=== PATIENT | female | born 2000 | race Hispanic/Latino ===

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

== ENCOUNTER 2021-10-29 09:15 | Outpatient (CLI) | payer BC | END 2021-10-29 09:16 | disposition home or self-care (01) | LOC: SCSRAD 09:15 | PROVIDERS: ATTEND Family Medicine | DX: M54.12 Radiculopathy, cervical region (principal) | CPT/HCPCS: 72052 ==

== ENCOUNTER 2025-05-23 19:08 | Emergency (ER) | payer BC ==
[2025-05-23] MEDS ORDERED: diphenhydrAMINE 50 MG/ML VIAL ONE (19:41)
[2025-05-23] MEDS ORDERED: Metoclopramide HCl 10 MG (2 mL) VIAL ONE (19:41)
[2025-05-23] MEDS ORDERED: Magnesium 2 GM/50 ML BAG (IN WATER) ONE (19:42)
[2025-05-23 19:46] LABS: #Basophils 0.05 10x3/uL (0.0-0.2); #Eosinophils 0.11 10x3/uL (0.0-0.7); #Monocytes 0.79 10x3/uL (0.11-0.59); #Neutrophils 10.36 10x3/uL (1.40-6.50); %Basophils 0.4 % (0.0-1.0); %Eosinophils 0.8 % (0.0-10.0); %Lymphocytes 15.4 % (21.0-51.0); %Monocytes 5.9 % (0.0-10.0); %Neutrophils 77.2 % (42.0-75.0); Hematocrit 44.7 % (36.0-47.0); Hemoglobin 15.3 g/dL (12.0-16.0); Mean Corpuscular Hemoglobin 29.7 pg (27.0-31.0); Mean Corpuscular Volume 86.6 fL (78.0-98.0); Platelet Count 313 10x3/uL (130-400); Red Blood Cell (RBC) Count 5.16 mill/uL (4.20-5.40); White Blood Cell (WBC) Count 13.42 10x3/uL (4.8-10.8)
[2025-05-23 19:55] LABS: BHCG - Serum Negative (NEGATIVE); Pregs Control Background? CLEAR/WHITE (CLR/WHITE); Pregs Control Bar Appear? YES (CONTROL BAR)
[2025-05-23 20:13] LABS: ALT (SGPT) 12 U/L (Less than 34); AST (SGOT) 24 U/L (11-34); Albumin 4.6 g/dL (3.1-4.5); Alkaline Phosphatase 64 U/L (40-110); Anion Gap 19 mmol/L (10-20); BUN (Urea Nitrogen) 9 mg/dL (7.0-18.7); Bilirubin, Total 0.7 mg/dL (0.3-1.2); Calc. Creatinine Clearance 0 mL/min (70-130); Calcium 10.3 mg/dL (7.8-10.44); Carbon Dioxide 20 mmol/L (22-29); Chloride 105 mmol/L (98-107); Globulin 3.9 g/dL (2.4-3.5); Glucose 84 mg/dL (70-105); Potassium 4.0 mmol/L (3.5-5.1); Sodium 140 mmol/L (136-145)
[2025-05-23] MEDS ORDERED: Dexamethasone 10 MG/ML VIAL ONE (22:35)
[2025-05-23] MEDS ORDERED: Acetaminophen 325 MG TAB ONE (22:46)
== END 2025-05-24 01:39 | disposition home or self-care (01) ==
LOC: ERS 19:08
DX: G43.909 Migraine, unspecified, not intractable, without status migrainosus (principal); B34.9 Viral infection, unspecified
CPT/HCPCS: 80053; 84703; 85025; 87428; 96365; 96366; 96367; 96368; 96375; J1100; J1200; J2765; J3475